=== PATIENT | female | born 1985 | race African-American/Black ===

== ENCOUNTER 2018-02-16 17:35 | Emergency (ER) | payer MEDICAID ==
[~2018-02-16 17:35] MED LIST: DILA100C PO
[2018-02-16 17:57] VITALS: BP 120/78; PULSE 112; RESP 19
[2018-02-16] MEDS ORDERED: ACETAMINOPHEN 325 MG TAB PO ONE (18:15)
[2018-02-16] MEDS ORDERED: SODIUM CHLOR 0.9% 1000 ML INJ 1,000 ML IV ONE (18:15)
[2018-02-16] MEDS ORDERED: SODIUM CHLORIDE 0.9% FLUSH 10 ML FLUSH IVF PRN (18:15)
--- NOTE | 2018-02-16 18:16 | PD ---
HPI Chief Complaint: Seizure Time Seen by Provider: 18:09 Travel History International Travel<30 days: No Contact w/Intl Traveler<30days: No Traveled to known affect area: No History of Present Illness HPI 32-year-old female with history of seizure disorder brought in by ambulance after having a witnessed seizure at home. The patient reports that she was on the couch when family witnessed a seizure. She states that she is on phenytoin and Tegretol, however ran out of these medications 2 days ago. She denies fevers or recent illness. She did bite her tongue. No urinary incontinence during this episode. She complains of a moderate diffuse headache currently. No paresthesias or motor deficits. PFSH Past Medical History Autoimmune Disease: No Heart Rhythm Problems: No Cancer: No Cardiovascular Problems: No High Cholesterol: No Diminished Hearing: No Endocrine: No Gastrointestinal Disorders: Yes GERD: No Genitourinary: No Headaches: Yes Heparin Induced Thrombocytopen: No Immune Disorder: No Neurologic: Yes Psychiatric: No Reproductive: No Respiratory: No Seizures: Yes Sickle Cell Disease: No ?: Not : 4 Para: 4 Ectopic : No Ovarian Cysts: No Tubal Ligation: No Past Surgical History AICD: No Arteriovenous Shunt: No Hysterectomy: No Insulin Pump: No Joint Replacement: No Other Surgery: No Social History Alcohol Use: No Tobacco Use: No Substance Use: No Allergies-Medications (Allergen,Severity, Reaction): Coded Allergies: No Known Allergies (Verified , 08/28/16) Reported Meds & Prescriptions Reported Meds & Active Scripts Active Reported Topamax (Topiramate) 100 Mg Tab 100 Mg PO BID Review of Systems Except as stated in HPI: all other systems reviewed are Neg Physical Exam Narrative GENERAL: Well-developed, well-nourished, awake, alert, GCS 15, no apparent distress. SKIN: Focused skin assessment warm/dry. HEAD: Atraumatic. Normocephalic. EYES: Pupils equal and round. No scleral icterus. No injection or drainage. ENT: No nasal bleeding or discharge. Mucous membranes pink and moist. Superficial abrasion to right lateral tongue. NECK: Trachea midline. No JVD. No nuchal rigidity. CARDIOVASCULAR: Regular rate and rhythm. RESPIRATORY: No accessory muscle use. Clear to auscultation. Breath sounds equal bilaterally. GASTROINTESTINAL: Abdomen soft, non-tender, nondistended. MUSCULOSKELETAL: No obvious deformities. No clubbing. No cyanosis. No edema. NEUROLOGICAL: Awake and alert. No obvious cranial nerve deficits. Motor grossly within normal limits. Normal speech. PSYCHIATRIC: Appropriate mood and affect; insight and judgment normal. Data Data Last Documented VS Vital Signs Date Time Temp Pulse Resp B/P (MAP) Pulse Ox O2 Delivery O2 Flow Rate FiO2 02/16/18 17:57 112 19 120/78 (92) Orders Orders Complete Blood Count With Diff (02/16/18 18:13) Alcohol (Ethanol) (02/16/18 18:13) Phenytoin (Dilantin) (02/16/18 18:13) Carbamazepine (Tegretol) (02/16/18 18:13) Drug Screen, Random Urine (02/16/18 18:) Ecg Monitoring (02/16/18 18:) Iv Access Insert/Monitor (02/16/18 18:13) Comprehensive Metabolic Panel (02/16/18 18:) Sodium Chloride 0.9% Flush (Ns Flush) (02/16/18 18:15) Urinalysis - C+S If Indicated (02/16/18 18:13) Beta Hcg (Quant/Titer) (02/16/18 18:13) Sodium Chlor 0.9% 1000 Ml Inj (Ns 1000 M (02/16/18 18:15) Acetaminophen (Tylenol) (02/16/18 18:15) Carbamazepine (Tegretol) (02/16/18 19:45) Labs Laboratory Tests Test 02/16/18 18:00 White Blood Count 12.5 TH/MM3 Red Blood Count 5.10 MIL/MM3 Hemoglobin 9.1 GM/DL Hematocrit 30.4 % Mean Corpuscular Volume 59.7 FL Mean Corpuscular Hemoglobin 17.8 PG Mean Corpuscular Hemoglobin Concent 29.9 % Red Cell Distribution Width 20.4 % Platelet Count 468 TH/MM3 Mean Platelet Volume 8.9 FL Neutrophils (%) (Auto) 66.1 % Lymphocytes (%) (Auto) 26.6 % Monocytes (%) (Auto) 6.1 % Eosinophils (%) (Auto) 0.7 % Basophils (%) (Auto) 0.5 % Neutrophils # (Auto) 8.3 TH/MM3 Lymphocytes # (Auto) 3.3 TH/MM3 Monocytes # (Auto) 0.8 TH/MM3 Eosinophils # (Auto) 0.1 TH/MM3 Basophils # (Auto) 0.1 TH/MM3 CBC Comment DIFF FINAL Differential Comment Blood Urea Nitrogen 8 MG/DL Creatinine 0.87 MG/DL Random Glucose 71 MG/DL Total Protein 8.3 GM/DL Albumin 3.3 GM/DL Calcium Level 8.9 MG/DL Alkaline Phosphatase 71 U/L Aspartate Amino Transf (AST/SGOT) 11 U/L Alanine Aminotransferase (ALT/SGPT) 13 U/L Total Bilirubin 0.1 MG/DL Sodium Level 139 MEQ/L Potassium Level 3.8 MEQ/L Chloride Level 107 MEQ/L Carbon Dioxide Level 20.5 MEQ/L Anion Gap 12 MEQ/L Estimat Glomerular Filtration Rate 91 ML/MIN Human Chorionic Gonadotropin, Quant LESS THAN 1 MIU/ML Phenytoin (Dilantin) Level LESS THAN 0.4 MCG/ML Carbamazepine (Tegretol) Level LESS THAN 0.5 MCG/ML Ethyl Alcohol Level LESS THAN 3 MG/DL MDM Medical Decision Making Medical Screen Exam Complete: Yes Emergency Medical Condition: Yes Medical Record Reviewed: Yes Differential Diagnosis Breakthrough seizure, medication noncompliance, metabolic abnormality Narrative Course Vital signs reviewed. Heart rate improved from 112 to 90 after a liter of normal saline IV. CBC: WBC 12.5, hemoglobin 9.1, hematocrit 30.4, platelets 468, MCV 59.7. The patient has history of anemia and recently finished her menstrual period. CMP is essentially unremarkable. Beta-hCG is negative. Dilantin and Tegretol levels are negative/undetectable. Alcohol level is negative. Patient was made aware of all findings. She is resting comfortably. Headache improved with Tylenol. There is no nuchal rigidity on exam. She is afebrile. Patient tells me that she has not been on Dilantin for a long time as her neurologist took her off of this several months ago. She is supposed to be on Tegretol 100 mg twice daily, however has only been taking it once daily, and the last dose was 2 days ago. This is likely why she had a seizure. Plan is to refill this prescription for her and have her follow-up with a primary care physician or her neurologist this week. She was advised on when to return to the emergency department. She verbalizes understanding and agreement with plan. Diagnosis Primary Impression: Seizure secondary to subtherapeutic anticonvulsant medication Referrals: Neurologist 3 days Primary Care Physician 3 days Additional Instructions: Follow-up with your primary care physician this week. Follow-up with your neurologist this week. Take medications as prescribed. Return to the emergency department for worsening symptoms or any other concerns. Scripts Carbamazepine (Tegretol) 200 Mg Tab 200 MG PO BID, #60 TAB 2 Refills Prov: Mian Blankenship MD 02/16/18 Disposition: 01 DISCHARGE HOME Condition: Stable Mian Blankenship MD February 16, 2018 18:15
[2018-02-16] MEDS ORDERED: TOPI100 PO (18:29)
[2018-02-16 18:38] LABS: AUTOMATED NEUTROPHIL # 8.3 TH/MM3 (1.8-7.7); BASOPHIL # 0.1 TH/MM3 (0-0.2); BASOPHIL % 0.5 % (0.0-2.0); EOSINOPHIL # 0.1 TH/MM3 (0-0.4); EOSINOPHIL % 0.7 % (0.0-4.0); HEMATOCRIT 30.4 % (35.0-46.0); HEMOGLOBIN 9.1 GM/DL (11.6-15.3); LYMPH % 26.6 % (9.0-44.0); LYMPHOCYTE # 3.3 TH/MM3 (1.0-4.8); MEAN CELL VOLUME 59.7 FL (80.0-100.0); MEAN CORPUSCULAR HEMOGLOBIN 17.8 PG (27.0-34.0); MEAN PLATELET VOLUME 8.9 FL (7.0-11.0); MONO % 6.1 % (0.0-8.0); MONOCYTE # 0.8 TH/MM3 (0-0.9); NEUT % 66.1 % (16.0-70.0); PLATELET COUNT 468 TH/MM3 (150-450); RED CELL DISTRIBUTION WIDTH 20.4 % (11.6-17.2); WHITE BLOOD COUNT 12.5 TH/MM3 (4.0-11.0)
[2018-02-16 18:46] LABS: MEAN CORPUSCULAR HGB CONC 29.9 % (32.0-36.0)
[2018-02-16 19:00] LABS: ALBUMIN 3.3 GM/DL (3.4-5.0); AST (GOT) 11 U/L (15-37); BICARBONATE 20.5 MEQ/L (21.0-32.0); BLOOD UREA NITROGEN 8 MG/DL (7-18); CALCIUM 8.9 MG/DL (8.5-10.1); CHLORIDE 107 MEQ/L (98-107); CREATININE 0.87 MG/DL (0.50-1.00); GLOMERULAR FILTRATION RATE 91 ML/MIN (>89); GLUCOSE,RANDOM 71 MG/DL (74-106); SODIUM (NA) 139 MEQ/L (136-145)
[2018-02-16 19:01] LABS: ALT (GPT) 13 U/L (10-53)
[2018-02-16 19:06] LABS: ALKALINE PHOSPHATASE 71 U/L (45-117); CARBAMAZEPINE (TEGRETOL) LESS THAN 0.5 MCG/ML (4.0-12.0); PHENYTOIN (DILANTIN) LESS THAN 0.4 MCG/ML (10.0-20.0); TOTAL BILIRUBIN ADULT 0.1 MG/DL (0.2-1.0); TOTAL PROTEIN 8.3 GM/DL (6.4-8.2)
[2018-02-16] MEDS ORDERED: TEGR200T PO (19:42)
[2018-02-16] MEDS ORDERED: carBAMazepine 200 MG TAB PO ONE (19:45)
== END 2018-02-16 20:51 | disposition home or self-care (01) ==
LOC: NEPD 17:35
DX: G40.909 Epilepsy, unspecified, not intractable, without status epilepticus (principal); T42.1X6A Underdosing of iminostilbenes, initial encounter
CPT/HCPCS: 80053; 80156; 80185; 80307; 84702; 85025; 96360; 99284; J7030